=== PATIENT | female | born 1980 | race American Indian/Alaskan Native ===

== ENCOUNTER 2017-08-24 17:28 | Emergency (ER) | payer BC ==
[2017-08-24 18:47] VITALS: BP 125/87
[2017-08-24 20:03] LABS: Bacteria,Urine 1+ /HPF (Negative); Bilirubin,Urine NEG (Negative); Blood,Urine NEG (Negative); Color,Urine Yellow (Yellow); Mucus,Urine FEW /HPF; Protein,Urine <15 mg/dL mg/dL (Negative)
[2017-08-24 20:03] LABS: Hematocrit 40.5 % (30.3-42.9); Hemoglobin 13.6 gm/dl (10.1-14.3); Mean Corpuscular HGB Conc 34 % (30-34); Mean Corpuscular Volume 77 fl (79-97); Platelet Count 284 K/mm3 (140-440); Red Blood Count 5.26 M/mm3 (3.65-5.03); Red Cell Distribution Width 15.2 % (13.2-15.2)
[2017-08-24 20:13] LABS: HCG Qualitative,Urine Negative (Negative)
[2017-08-24 20:13] LABS: Alanine Aminotransferase 10 units/L (7-56); Albumin 4.2 g/dL (3.9-5); BUN/Creatinine Ratio 18; Blood Urea Nitrogen 11 mg/dL (7-17); Calcium 8.8 mg/dL (8.4-10.2); Hemolysis Index 2; Lipase 19 units/L (13-60); Mean Corpuscular Hemoglobin 26 pg (28-32)
[2017-08-24 21:29] LABS: Band Neutrophils # (Manual) 0.1 K/mm3; Basophils % (Manual) 0 % (0.0-1.8); Myelocytes # (Manual) 0.3 K/mm3; Total Cells Counted 100
[2017-08-24 21:30] LABS: Platelet Estimate Consistent w Auto
[2017-08-24] MEDS ORDERED: NACL 0.9% 1000 ML 1,000 ML IV ONE (21:46)
[2017-08-24] MEDS ORDERED: ZOFRAN IV ONE (21:46)
--- NOTE | 2017-08-24 22:23 | Emergency Department Report ---
ED N/V/D HPI - General Chief complaint: Nausea/Vomiting/Diarrhea Stated complaint: VOMITING/NAUSEA Time Seen by Provider: 08/24/17 21:33 Source: patient Mode of arrival: Ambulatory Limitations: No Limitations - History of Present Illness Initial comments: 37-year-old female comes in complaining of nausea and vomiting for the last 3-4 days. Patient reports that she was nauseated and started vomiting at work and was sent home. Patient reports that she has a past medical history of kidney stones. Patient reports that she often make it a little nauseated prior to her cycles but she does not vomit. Patient reports her last menstrual cycle started on 08/07/2017. Patient denies any abdominal pain or dysuria no pelvic pain no headache. She reports that she feels dry. She reports that she tries to drink plenty of water lately she is not able to hold that down either. MD complaint: nausea, vomiting -: days(s) (3-4) Description of Vomiting: watery Associated Abdominal Pain: No Consistency: constant (4 times today.), intermittent (nausea) Improves with: none Worsens with: eating Associated Symptoms: denies: headaches, shortness of breath - Related Data Previous Rx's Medication Instructions Recorded Last Taken Type Ondansetron [Zofran Odt] 4 mg PO Q8H #12 tab.rapdis 08/25/17 Unknown Rx Allergies Allergy/AdvReac Type Severity Reaction Status Date / Time Sulfa (Sulfonamide Allergy Unknown Verified 08/24/17 18:42 Antibiotics) ED Review of Systems ROS: Stated complaint: VOMITING/NAUSEA Other details as noted in HPI Constitutional: denies: chills, fever Eyes: denies: eye pain, eye discharge, vision change ENT: denies: ear pain, throat pain Respiratory: denies: cough, shortness of breath, wheezing Cardiovascular: denies: chest pain, palpitations Gastrointestinal: nausea, vomiting. denies: abdominal pain, diarrhea, constipation Genitourinary: denies: urgency, dysuria, discharge Musculoskeletal: denies: back pain, joint swelling, arthralgia Skin: denies: rash, lesions Neurological: denies: headache, weakness, paresthesias Psychiatric: denies: anxiety, depression Hematological/Lymphatic: denies: easy bleeding, easy bruising ED Past Medical Hx - Past Medical History Previous Medical History?: Yes Hx Kidney Stones: Yes - Surgical History Past Surgical History?: Yes Additional Surgical History: RIGHT RING FINGER AMPUTATION AND REPAIR - Social History Smoking Status: Current Every Day Smoker Substance Use Type: Alcohol - Medications Home Medications: Home Medications Medication Instructions Recorded Confirmed Last Taken Type Ondansetron [Zofran Odt] 4 mg PO Q8H #12 tab.andreadis 08/25/17 Unknown Rx ED Physical Exam - General Limitations: No Limitations General appearance: alert, in no apparent distress - Head Head exam: Present: atraumatic, normocephalic - Eye Eye exam: Present: normal appearance - ENT ENT exam: Present: mucous membranes dry - Neck Neck exam: Present: normal inspection - Respiratory Respiratory exam: Present: normal lung sounds bilaterally. Absent: respiratory distress - Cardiovascular Cardiovascular Exam: Present: regular rate, normal rhythm. Absent: systolic murmur, diastolic murmur, rubs, gallop - GI/Abdominal GI/Abdominal exam: Present: soft, normal bowel sounds - Back Exam Back exam: Present: full ROM - Neurological Exam Neurological exam: Present: alert, oriented X3 - Psychiatric Psychiatric exam: Present: normal affect, normal mood - Skin Skin exam: Present: warm, dry, intact, normal color. Absent: rash ED Course Vital Signs 08/24/17 18:42 Temperature 98.6 F Pulse Rate 79 Respiratory 20 Rate Blood Pressure 125/87 O2 Sat by Pulse 100 Oximetry - Reevaluation(s) Reevaluation #1: 08/25/17 00:07 Patient put she feels much better after having IV and Zofran. ED Medical Decision Making - Lab Data Result diagrams: 08/24/17 19:39 08/24/17 19:39 - Medical Decision Making Patient has been evaluated by this provider in fast track. Labs were ordered. Discussed patient and give her IV Zofran and 1 L of normal saline and then started by mouth trial. Discussed the patient is symptoms persist or gets worse she needs to follow up with her primary care provider. Patient verbalized understanding. Critical care attestation.: If time is entered above; I have spent that time in minutes in the direct care of this critically ill patient, excluding procedure time. ED Disposition Clinical Impression: Nausea and vomiting Qualifiers: Vomiting type: unspecified Vomiting Intractability: intractable Qualified Code( s): R11.2 - Nausea with vomiting, unspecified Disposition: DC-01 TO HOME OR SELFCARE Is pt being admited?: No Does the pt Need Aspirin: No Condition: Stable Instructions: Gastritis (ED) Additional Instructions: Please take Zofran as needed for nausea. Please continue with fluids and advance her diet as tolerated. If symptoms persist or gets worse please follow up with her primary care provider. Prescriptions: Ondansetron [Zofran Odt] 4 mg PO Q8H #12 tab.rapdis Referrals: PRIMARY CARE, [Primary Care Provider] - 3-5 Days [facility] [Provider Group] - 3-5 Days Forms: Work/School Release Form(ED)
== END 2017-08-25 00:10 | disposition home or self-care (01) ==
LOC: ED 17:28
DX: R11.2 Nausea with vomiting, unspecified (principal); F17.200 Nicotine dependence, unspecified, uncomplicated; Z88.2 Allergy status to sulfonamides; Z87.442 Personal history of urinary calculi
CPT/HCPCS: 36415; 80053; 81001; 81025; 83690; 85007; 85025; 96361; 96374; 99283; J2405; J7030